=== PATIENT | male | born 1980 | race Two or more races ===

== ENCOUNTER 2018-06-16 20:28 | Emergency (ER) | payer MEDICAID ==
[~2018-06-16] VITALS: Ht 172.7 cm; Wt 81.6 kg
--- NOTE | 2018-06-16 21:05 | NUR ---
ED Nurse Note: RECIEVED PT FROM HOME, AWAKE, ALERT AND ORIENTED X 4, PT HERE WITH C/O MID UPPER ABDOMINAL / CHEST PAIN FOR PAST 4 DAYS, RATES PAIN AT 9/10, DENIES INJURY TO AREA, COUGHING, FEVERS, DIARRHEA, OR ANY OTHER COMPLAITNS OR DISCOMFORTS, PT IS AMBULATORY, ASSISTED TO GOWNING, PLACED ON MONITORING, IV LINE PLACED ANED LABS DRAWN, WILL RESUME CARE ORDERED AND CONTINUE TO CLOSELY MONITOR.
--- NOTE | 2018-06-16 21:09 | Emergency Room Report ---
History of Present Illness General Chief Complaint: Chest Pain Source: Patient Present Illness HPI This is a 37-year-old male with no past medical history. He presents with chief complaint abdominal pain and chest pain. Onset for 3 days. He has diarrhea. Pain is diffuse but now left lower quadrant. Diarrhea is watery. Pain is crampy in nature. 7 out of 10. No radiation. No nausea no vomiting no fever or chills. No other complaint. Allergies: Coded Allergies: No Known Allergies (Unverified , 06/16/18) Patient History Past Medical History: none, see triage record, old chart reviewed Past Surgical History: none Pertinent Family History: none Social History: Denies: smoking Immunizations: other Reviewed Nursing Documentation: PMH: Agreed; PSxH: Agreed Nursing Documentation-PMH Past Medical History: No Stated History Review of Systems Eye: Denies: eye pain, blurred vision ENT: Denies: ear pain, nose congestion, throat swelling Respiratory: Denies: cough, shortness of breath Cardiovascular: Reports: chest pain; Denies: palpitations Gastrointestinal: Reports: abdominal pain, diarrhea; Denies: nausea, vomiting Musculoskeletal: Denies: back pain, joint pain Skin: Denies: rash Neurological: Denies: headache, numbness Endocrine: Denies: increased thirst, increased urine Hematologic/Lymphatic: Denies: easy bruising All Other Systems: negative except mentioned in HPI Physical Exam Vital Signs Date Time Temp Pulse Resp B/P (MAP) Pulse Ox O2 Delivery O2 Flow Rate FiO2 06/16/18 20:43 99.3 104 18 145/92 98 Room Air vitals normal Sp02 EP Interpretation: reviewed, normal General Appearance: well appearing, no apparent distress, alert Head: normocephalic, atraumatic Eyes: bilateral eye PERRL, bilateral eye EOMI ENT: hearing grossly normal, normal pharynx Neck: full range of motion, supple, no meningismus Respiratory: chest non-tender, lungs clear, normal breath sounds Cardiovascular #1: regular rate, rhythm, no murmur Gastrointestinal: normal bowel sounds, no mass, no organomegaly, no bruit, non- distended, tenderness - Left lower quadrant Musculoskeletal: back normal, gait/station normal, normal range of motion Neurologic: alert, oriented x3 Psychiatric: mood/affect normal Skin: warm/dry Medical Decision Making Diagnostic Impression: Primary Impression: Chest pain Qualified Codes: R07.9 - Chest pain, unspecified Additional Impression: Abdominal pain Qualified Codes: R10.84 - Generalized abdominal pain ER Course Patient with atypical chest pain, noncardiac in nature. No evidence of ACS, PE , dissection to name a few. He also has abdominal cramping with diarrhea. This may be infectious in nature. Most likely viral. CT unremarkable. EKG Diagnostic Results Rate: normal Rhythm: NSR ST Segments: no acute changes ASA given to the pt in ED: No - Noncardiac Rhythm Strip Diag. Results EP Interpretation: yes Rate: 100 Rhythm: NSR, no PVC's, no ectopy CT/MRI/US Diagnostic Results CT/MRI/US Diagnostic Results : Imaging Test Ordered: CT abdomen and pelvis Impression negative per radiologist Last Vital Signs Date Time Temp Pulse Resp B/P (MAP) Pulse Ox O2 Delivery O2 Flow Rate FiO2 06/16/18 20:43 99.3 104 18 145/92 98 Room Air Status: improved Disposition: HOME, SELF-CARE Condition: Stable Scripts Metronidazole* (FLAGYL*) 500 Mg Tablet 500 MG ORAL BID, #14 TAB Prov: Uzair Courtney MD 06/16/18 Ciprofloxacin Hcl* (CIPROFLOXACIN HCL*) 500 Mg Tablet 500 MG ORAL Q12H, #14 TAB 0 Refills Prov: Uzair Courtney MD 06/16/18 Additional Instructions: Follow-up with your doctor in 7 days. Return if symptom worsen. Uzair Courtney MD Jun 16, 2018 21:09
[2018-06-16] MEDS ORDERED: Ketorolac 30mg Inj IV ONE (21:15)
[2018-06-16 21:19] LABS: BASOPHILS % (AUTO) 1.3 % (0.0-2.0); EOSINOPHILS % (AUTO) 3.2 % (0.0-3.0); HEMATOCRIT 44.2 % (42.0-52.0); HEMOGLOBIN 15.1 G/DL (14.2-18.0); LYMPHOCYTES % (AUTO) 42.3 % (20.0-45.0); MEAN CORPUSCULAR VOLUME 82 FL (80-99); MONOCYTES % (AUTO) 8.1 % (1.0-10.0); NEUTROPHILS % (AUTO) 45.2 % (45.0-75.0); PLATELET COUNT 251 K/UL (150-450); RED BLOOD COUNT 5.41 M/UL (4.70-6.10); RED CELL DISTRIBUTION WIDTH 11.9 % (11.6-14.8); WHITE BLOOD COUNT 8.1 K/UL (4.8-10.8)
[2018-06-16 21:31] LABS: ANION GAP 7 mmol/L (5-15); BLOOD UREA NITROGEN 12 mg/dL (7-18); CALCIUM 9.4 MG/DL (8.5-10.1); CARBON DIOXIDE 31 MMOL/L (21-32); CHLORIDE 103 MMOL/L (98-107); POTASSIUM 3.2 MMOL/L (3.5-5.1); SODIUM 141 MMOL/L (136-145)
[2018-06-16 21:36] LABS: ALANINE AMINOTRANSFERASE 54 U/L (12-78); ALBUMIN 4.3 G/DL (3.4-5.0); ALBUMIN/GLOBULIN RATIO 1.1 (1.0-2.7); ALKALINE PHOSPHATASE 79 U/L (46-116); ASPARTATE AMINO TRANSFERASE 25 U/L (15-37); BILIRUBIN,TOTAL 0.8 MG/DL (0.2-1.0)
[2018-06-16] MEDS ORDERED: METRONIDAZOLE500 MG ORAL (21:44)
[2018-06-16] MEDS ORDERED: CIPROFLOXACIN500 M2 ORAL (21:44)
[2018-06-16 22:15] VITALS: BP 132/84
[2018-06-16 22:30] VITALS: BP 132/84
--- NOTE | 2018-06-17 17:06 | Diagnostic Imaging Report ---
Indication: Abdominal pain, chest pain, diarrhea, pain diffuse and in the left lower quadrant Technique: Spiral acquisitions obtained through the abdomen and pelvis. No oral contrast utilized, per emergency room physician request No IV contrast utilized, per referring physician request.. Multiplanar reconstructions were generated. Total dose length product 822.86 mGycm. CTDIvol(s) 15.03 mGy. Dose reduction achieved using automated exposure control Comparison: None Findings: There is colonic diverticulosis. There are no findings to suggest acute diverticulitis. The appendix is normal. No small bowel distention. No free or loculated intraperitoneal gas or fluid. Distal esophagus, stomach, duodenum are unremarkable. Lack of IV contrast limits assessment of solid organs. The liver demonstrates a cyst in segment 7. The gallbladder is nondistended. No biliary ductal dilatation. The pancreas, spleen, adrenals, kidneys are unremarkable. No retroperitoneal or mesenteric mass or adenopathy. No pelvic mass or adenopathy. The included lung bases demonstrate posterior dependent atelectatic changes. There is also some atelectasis or scarring in the inferomedial left middle lobe. Impression: No definite acute abnormality Colonic diverticulosis. No evidence of diverticulitis Right lobe liver cyst This agrees with the preliminary interpretation provided overnight by [facility] telerad[facility] service, with minor variations. The CT scanner at [facility] is accredited by the [employer] and the scans are performed using protocols designed to limit radiation exposure to as low as reasonably achievable to attain images of sufficient resolution adequate for diagnostic evaluation.
--- NOTE | 2018-06-18 20:23 | Cardiology Report ---
APPROVED REPORT EKG Measurement Heart Utdu670MIZA ID [id number] Sinus tachycardia Otherwise normal ECG
== END 2018-06-16 22:35 | disposition home or self-care (01) ==
LOC: EMR 21:00
DX: R07.9 Chest pain, unspecified (principal); R10.84 Generalized abdominal pain
CPT/HCPCS: 36415; 74176; 80053; 83690; 84484; 85025; 93005; 96374; 99284; J1885